=== PATIENT | male | born 1940 | race Caucasian/White ===

== ENCOUNTER 2019-06-18 08:30 | Inpatient (IN) | payer BC, MEDICARE ==
[~2019-06-18] VITALS: Ht 167.6 cm; Wt 73.9 kg
[2019-06-18 08:39] VITALS: BP 100/50
[2019-06-18] MEDS ORDERED: ZETIA10 MG PO (08:47)
[2019-06-18] MEDS ORDERED: LEVO-T50 MCG PO (08:47)
[2019-06-18] MEDS ORDERED: GABAPENTIN100 MG PO (08:48)
[2019-06-18] MEDS ORDERED: KLOR-CON 1010 MEQ PO (08:48)
[2019-06-18] MEDS ORDERED: PROCARDIA XL30 MG PO (08:48)
[2019-06-18] MEDS ORDERED: OXYBUTYNIN 5 MG5 M2 PO (08:48)
[2019-06-18] MEDS ORDERED: METOPROLOL TART25 MG PO (08:49)
[2019-06-18] MEDS ORDERED: ACCUNEB SO1.25 MG/1 INH (08:49)
[2019-06-18] MEDS ORDERED: SUPER THERAVIT1 EACH PO (08:50)
[2019-06-18] MEDS ORDERED: VITAMIN D1000 UNI2 PO (08:50)
[2019-06-18] MEDS ORDERED: TRESIBA100 UNIT/1 SUBQ (08:50)
[2019-06-18] MEDS ORDERED: PSYLLIUM FIBE0.52 GM PO (08:50)
[2019-06-18] MEDS ORDERED: CLONAZEPAM 0.50.5 M1 PO (08:51)
[2019-06-18] MEDS ORDERED: FERROUS SULFAT325 MG PO (08:51)
[2019-06-18] MEDS ORDERED: SENNA8.6 MG PO (08:51)
[2019-06-18] MEDS ORDERED: AZELASTINE205.5 MCG/ NARES (08:52)
[2019-06-18] MEDS ORDERED: PREDNISONE 2.52.5 M1 PO (08:52)
[2019-06-18] MEDS ORDERED: RANOLAZINE ER500 MG PO (08:52)
[2019-06-18] MEDS ORDERED: MIRALAX119 GM PO (08:52)
[2019-06-18] MEDS ORDERED: DULCOLAX STOOL100 M1 PO (08:53)
[2019-06-18] MEDS ORDERED: FUROSEMIDE 40 M40 MG PO (08:53)
[2019-06-18] MEDS ORDERED: INSULIN LI100 UNIT/1 SUBQ (08:53)
[2019-06-18] MEDS ORDERED: ISOSORBIDE MON120 MG PO (08:53)
[2019-06-18] MEDS ORDERED: CALCIUM 500 +1 EAC6 PO (08:54)
[2019-06-18] MEDS ORDERED: ARNUITY ELLIP100 MCG INH (08:54)
[2019-06-18] MEDS ORDERED: ASPIR 8181 M1 PO (08:54)
[2019-06-18] MEDS ORDERED: NEXIUM 40 MG CA40 M1 PO (08:55)
[2019-06-18] MEDS ORDERED: ZYTIGA500 MG PO (08:55)
[2019-06-18] MEDS ORDERED: CRESTOR5 MG PO (08:55)
[2019-06-18] MEDS ORDERED: FLOMAX0.4 MG PO (08:55)
[2019-06-18 08:57] LABS: BE -1.3 mmol/L (-2 to +3); PCO2 VENOUS 48.9 mmHg (41.0-51.0); PO2 VENOUS 44.2 mmHg (35.0-45.0)
[2019-06-18 09:00] LABS: ABSOLUTE EOSINOPHILS 0.1 thou/uL (0.0-0.7); ABSOLUTE LYMPHOCYTES 0.8 thou/uL (0.8-5.3); ABSOLUTE MONOCYTES 0.5 thou/uL (0.0-1.2); ABSOLUTE NEUTROPHILS 6.9 thou/uL (1.6-8.1); BASOPHILS 0.1 %; EOSINOPHILS 0.8 %; HEMATOCRIT 33.1 % (42.0-52.0); HEMOGLOBIN 11.3 gm/dL (14.0-18.0); LYMPHOCYTES 9.6 %; MCH 31.3 pg (26.0-34.0); MCHC 34.2 g/dL (28.0-37.0); MCV 91.7 fL (80.0-100.0); MONOCYTES 6.4 %; MPV 7.3 fl. (7.2-11.1); NUCLEATED RBCS 0 /100WBC; PLATELET COUNT* 366 thou/uL (150-400); POLYS 83.1 %; RBC 3.61 mil/uL (4.50-6.00); RDW-CV 14.6 % (10.5-14.5); WBC 8.3 thou/uL (4.0-11.0)
[2019-06-18 09:10] LABS: APTT 25.8 Seconds (25.0-31.3)
[2019-06-18 09:26] LABS: CALCIUM 9.5 mg/dL (8.5-10.1); CREATININE 3.3 mg/dL (0.6-1.3); POTASSIUM 3.9 mmol/L (3.5-5.1)
[2019-06-18 09:31] LABS: ALBUMIN 2.7 g/dL (3.4-5.0); TOTAL BILIRUBIN 0.4 mg/dL (<0.1-1.0); TOTAL PROTEIN 6.3 g/dL (6.4-8.2)
[2019-06-18 09:58] LABS: URINE BILIRUBIN NEGATIVE (Negative); URINE BLOOD NEGATIVE (Negative); URINE CLARITY CLEAR; URINE COLOR YELLOW; URINE GLUCOSE-RANDOM NEGATIVE (Negative); URINE KETONES NEGATIVE (Negative); URINE LEUKOCYTES-REFLEX 1+ (Negative); URINE NITRITE-REFLEX NEGATIVE (Negative); URINE PROTEIN 3+ (Negative); URINE UROBILINOGEN 0.2 E.U./dl (0.2-1.0)
[2019-06-18 10:12] LABS: BACTERIA-REFLEX 1-9 Few /HPF (None Seen); CASTS None Seen /LPF (None Seen); CRYSTALS None Seen /LPF (None Seen); MUCUS None Seen strn/LPF (None Seen); SQUAMOUS 0-3 Few /LPF (0-3); URINE RBC 0-2 Rare /HPF (0-2); YEAST-REFLEX Present (None Seen)
[2019-06-18 11:34] VITALS: BP 126/54
[2019-06-18 12:00] VITALS: BP 126/78
[2019-06-18 15:56] VITALS: BP 114/56
--- NOTE | 2019-06-18 17:59 | NUR ---
PATINET RESTING IN BED. VSS AND PATINET IN NOAPPARENT DISTRESS. [facility]PC SANCHEZ WAS PRESENT AT ADMISSION. PATIENT HAS CHEMO MEDICATION IN [place] THAT HE TAKES DAILY AT 05:00. HOURLY ROUNDING COMPLETED FOR PATIENT SAFETY.
[2019-06-18 19:45] VITALS: BP 126/65
[2019-06-19] VITALS (8 sets, daily range): BP systolic 102–173; BP diastolic 46–82
--- NOTE | 2019-06-19 14:21 | EKG ---
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 : [id number] Requested By: Rao Ayala Order Number: [id number] MD: Brandon Del Valle Measurements Intervals Tie Siding Rate: 64 P: 53 ID: [id number] QRS: -80 QRSD: 159 T: 79 QT: 488 QTc: 504 Interpretive Statements Sinus rhythm RBBB and LAFB Probable left ventricular hypertrophy Baseline wander in lead(s) V1 No previous ECG available for comparison Electronically Signed On 06-19-2019 14:21:24 CDT by Brandon Del Valle [email or web address] <ELECTRONICALLY SIGNED> By: Suraj Del Valle MD, ELEANOR 06/19/19 1421 0850 0850 Suraj Del Valle MD, ELEANOR /EPI
--- NOTE | 2019-06-19 18:29 | NUR ---
PT VSS, SR WITH A BBB ON TELE, PT HIGH FALL RISK AND EXTREMELY WEAK. PIVOTS TO BEDSIDE COMMODE WITH WALKER. POSSESSIONS AND CALL LIGHT WITHIN REACH. HOURLY ROUNDING PERFORMED. A&OX4. ACCUCHECKS. SANCHEZ IN PLACE. CHEMO IN THE EARLY AM, CAUSES NO SIDE AFFECTS ON ADMINISTRATION.
[2019-06-20 04:00] VITALS: BP 158/69
[2019-06-20 04:20] LABS: HEMATOCRIT 28.9 % (42.0-52.0); HEMOGLOBIN 9.9 gm/dL (14.0-18.0); MCH 31.8 pg (26.0-34.0); MCHC 34.2 g/dL (28.0-37.0); MCV 92.9 fL (80.0-100.0); MPV 7.4 fl. (7.2-11.1); RBC 3.11 mil/uL (4.50-6.00); RDW-CV 14.3 % (10.5-14.5); WBC 6.3 thou/uL (4.0-11.0)
--- NOTE | 2019-06-20 04:38 | NUR ---
ASSUMED CARE OF PT 06/19/19 APPROX 1930. PT REMAINED A&OX4 THROUGHOUT SHIFT, SANCHEZ IN PLACE, ON ROOM AIR, ASSESSMENTS AND HOURLY ROUNDINGS COMPLETED, FALL PRECAUTIONS IN PLACE, PT SLEPT WELL. WILL CONTINUE TO MONITOR.
[2019-06-20 04:41] LABS: ALBUMIN 2.3 g/dL (3.4-5.0); CALCIUM 9.4 mg/dL (8.5-10.1); POTASSIUM 4.5 mmol/L (3.5-5.1); TOTAL BILIRUBIN 0.2 mg/dL (<0.1-1.0); TOTAL PROTEIN 6.3 g/dL (6.4-8.2)
[2019-06-20 05:05] LABS: CREATININE 2.3 mg/dL (0.6-1.3)
[2019-06-20 08:00] VITALS: BP 145/78
[2019-06-20 11:54] VITALS: BP 176/66
[2019-06-20 12:46] VITALS: BP 197/70
--- NOTE | 2019-06-20 19:52 | NUR ---
PT VSS, SR W/ BBB, A&OX4, HIGH FALL RISK DUE TO SEVERE LE WEAKNESS. HOURLY ROUNDING PERFORMED, POSSESSIONS AND CALL LIGHT WITHIN REACH. REC. DISCHARGE ORDERS, REVIEWED DISCHARGE PACKET WITH PT AND SPOUSE. IV REMOVED WITHOUT COMPLICATION. TELE MONITOR REMOVED. BELONGINGS SENT WITH PT. PT TAKEN TO FRONT DOOR IN PERSONAL WHEELCHAIR BY NURSING STAFF. PICKED UP BY FAMILY.
== END 2019-06-20 13:40 | disposition home or self-care (01) | DRG 683 ==
LOC: M.ERS 08:30 → M.TBA-ER 09:57 → M.2W 09:57
PROVIDERS: Family Medicine; ADMIT Internal Medicine
DX: N17.9 Acute kidney failure, unspecified (principal); N39.0 Urinary tract infection, site not specified; E86.0 Dehydration; N18.3 Chronic kidney disease, stage 3 (moderate); E11.22 Type 2 diabetes mellitus with diabetic chronic kidney disease; I95.9 Hypotension, unspecified; E11.40 Type 2 diabetes mellitus with diabetic neuropathy, unspecified; E03.9 Hypothyroidism, unspecified; Z85.46 Personal history of malignant neoplasm of prostate; I25.2 Old myocardial infarction; Z80.0 Family history of malignant neoplasm of digestive organs; Z95.5 Presence of coronary angioplasty implant and graft; Z88.2 Allergy status to sulfonamides; Z88.8 Allergy status to other drugs, medicaments and biological substances; Z91.041 Radiographic dye allergy status; Z79.82 Long term (current) use of aspirin; Z79.899 Other long term (current) drug therapy